=== PATIENT | male | born 1995 | race Caucasian/White ===

== ENCOUNTER 2017-03-05 09:47 | Emergency (ER) | payer SELFPAY ==
[~2017-03-05 09:47] MED LIST: BACTROBAN15 GM; NAPROSYN500 MG PO; NO MEDICATIONS
== END 2017-03-05 10:26 | disposition home or self-care (01) ==
LOC: SED 09:47
DX: R51 Headache (principal); F17.210 Nicotine dependence, cigarettes, uncomplicated
CPT/HCPCS: 99282